=== PATIENT | male | born 1985 | race Caucasian/White ===

== ENCOUNTER 2020-09-22 11:16 | Outpatient (REF) | payer OTHER, SELFPAY | END 2020-09-22 11:17 | disposition home or self-care (01) | LOC: HO.LAB 11:16 | PROVIDERS: PCP Internal Medicine; Visit Provider Internal Medicine | DX: Z20.828 Contact with and (suspected) exposure to other viral communicable diseases (principal) | CPT/HCPCS: C9803; U0003 ==

== ENCOUNTER 2020-10-21 13:21 | Outpatient (REF) | payer OTHER, SELFPAY | END 2020-10-21 13:22 | disposition home or self-care (01) | LOC: HO.LAB 13:21 | PROVIDERS: Visit Provider Internal Medicine | DX: Z20.822 Contact with and (suspected) exposure to COVID-19 (principal) | CPT/HCPCS: 36415; C9803; U0003 ==